=== PATIENT | male | born 2000 | race Caucasian/White ===

== ENCOUNTER 2021-07-17 08:18 | Day surgery (SDC) | payer BC ==
[~2021-07-17 08:18] MED LIST: Bupivacaine 0.5% 50 ML MDV ONE; Lidocaine 1% with EPINEPHrine 1:100,000 50 ML MDV ONE
[2021-07-17] MEDS ORDERED: Acetaminophen 500 MG Tab PO ONE (08:30)
[2021-07-17] MEDS ORDERED: Dextrose 5%-Lactated Ringers 1,000 ML IV SCH (09:00)
[2021-07-17 09:07] LABS: CORONAVIRUS COVID-19 NAA NEGATIVE (NEGATIVE)
[2021-07-17] MEDS ORDERED: ceFAZolin 2 GM in Premix Bag 1 BAG IV ONE (09:30)
[2021-07-17] MEDS ORDERED: fentaNYL 100 MCG/2 ML SDV ONE (10:13)
[2021-07-17] MEDS ORDERED: Propofol 200 MG/20 ML SDV ONE ×2 (10:13→11:16)
[2021-07-17] MEDS ORDERED: Midazolam 1 MG/ML 2 ML SDV ONE ×2 (10:13→11:07)
== END 2021-07-17 12:53 | disposition home or self-care (01) ==
LOC: JP.SDS 08:18
PROVIDERS: ATTEND Surgery
DX: D17.23 Benign lipomatous neoplasm of skin and subcutaneous tissue of right leg (principal); Z01.812 Encounter for preprocedural laboratory examination; Z20.822 Contact with and (suspected) exposure to COVID-19
CPT/HCPCS: 0241U; 88304; A9270-GY; J0690; J2250; J2704; J3010; J3490; J7121

== ENCOUNTER 2024-11-17 23:28 | Emergency (ER) | payer BC ==
[2024-11-18 00:51] LABS: BASOPHILS ABSOLUTE AUTO 0.04 K/uL (0.00-0.10); BASOPHILS PERCENT AUTO 0.6 % (0.1-1.3); EOSINOPHILS ABSOLUTE AUTO 0.26 K/uL (0.00-0.40); EOSINOPHILS PERCENT AUTO 3.7 % (0.0-5.4); IMMATURE GRAN PERCENT AUTO 0.3 % (0.0-0.7); LYMPHOCYTES ABSOLUTE AUTO 1.88 K/uL (0.8-3.3); LYMPHOCYTES PERCENT AUTO 26.6 % (11.4-47.7); MONOCYTES ABSOLUTE AUTO 0.62 K/uL (0.20-0.90); MONOCYTES PERCENT AUTO 8.8 % (3.3-12.6); NEUTROPHILS ABSOLUTE AUTO 4.25 K/uL (1.0-7.6); NEUTROPHILS PERCENT AUTO 60.0 % (40.0-78.1); PLATELET COUNT,PLT 256 K/uL (130-375); RED BLOOD CELL COUNT 5.35 M/uL (4.14-5.76); WHITE BLOOD CELL COUNT,WBC 7.1 K/uL (3.2-11.0)
[2024-11-18 01:15] LABS: BLOOD UREA NITROGEN,BUN 14 mg/dL (7-18); CARBON DIOXIDE,CO2 28 mmol/L (21-32); CHLORIDE,CL 102 mmol/L (100-108); CREATININE 0.9 mg/dL (0.8-1.3); EST CRCL DRUG DOSING (CG) 155.38 mL/min; ESTIMATED GFR 122 mL/min (>60); GLUCOSE RANDOM 105 mg/dL (74-106); POTASSIUM,K 3.7 mmol/L (3.6-5.2); SODIUM,NA 137 mmol/L (140-148)
[2024-11-18 01:19] LABS: IMMATURE GRAN ABSOLUTE AUTO 0.02 K/uL (0.00-0.23)
[2024-11-18 01:20] LABS: TROPONIN I HIGH SENSITIVITY < 4.0 pg/mL (<=60.3)
== END 2024-11-18 02:35 | disposition home or self-care (01) ==
LOC: JP.ED 23:28
DX: R07.9 Chest pain, unspecified (principal)
CPT/HCPCS: 36415; 71045; 71045-26; 80048; 84484; 85025; 85379; 93005; 99285

== ENCOUNTER 2025-03-13 07:04 | Day surgery (SDC) | payer BC ==
[~2025-03-13 07:04] MED LIST changes: -Bupivacaine 0.5% 50 ML MDV ONE
[2025-03-13] MEDS ORDERED: fentaNYL 100 MCG/2 ML SDV ONE (07:28)
[2025-03-13] MEDS ORDERED: Midazolam 1 MG/ML 2 ML SDV ONE ×2 (07:28→08:07)
[2025-03-13] MEDS ORDERED: Propofol 200 MG/20 ML SDV ONE ×3 (07:28→09:03)
[2025-03-13] MEDS: Lactated Ringers 1,000 ML IV SCH (07:43)
[2025-03-13] MEDS ORDERED: Ketorolac 30 MG/ML SDV ONE (08:17)
[2025-03-13] MEDS: Lidocaine 1% with EPINEPHrine 1:100,000 50 ML MDV INJECT ONE (08:22)
== END 2025-03-13 10:42 | disposition home or self-care (01) ==
LOC: JP.SDS 07:04
PROVIDERS: ATTEND Surgery
DX: D17.21 Benign lipomatous neoplasm of skin and subcutaneous tissue of right arm (principal); D17.1 Benign lipomatous neoplasm of skin and subcutaneous tissue of trunk; Z79.899 Other long term (current) drug therapy
CPT/HCPCS: 00300; 21930; 24075; 25075; 88304; J0665; J0690; J1885; J2250; J2704; J3010; J7120